=== PATIENT | male | born 1940 | race African-American/Black ===

== ENCOUNTER 2024-04-06 19:16 | Inpatient (IN) | payer OTHER ==
[2024-04-06] MEDS ORDERED: IOHEXOL 350 MG/ML 100 ML VIAL ONE (19:28)
[2024-04-06] MEDS ORDERED: SODIUM CHLORIDE 0.9% 100 ML ONE (19:28)
[2024-04-06 19:42] LABS: BASOPHILS % (AUTO) 0.3 % (0.0-2.0); EOSINOPHILS % (AUTO) 1.2 % (1.0-6.0); HEMATOCRIT 39.4 % (41-53); HEMOGLOBIN 12.6 g/dL (13.5-17.5); LYMPHOCYTES # (AUTO) 1.6 K/uL (1.0-4.8); MEAN CORPUSCULAR HEMOGLOBIN 29.2 pg (26.0-34.0); MEAN CORPUSCULAR HGB CONC 32.1 G/dL (31.0-37.0); MEAN CORPUSCULAR VOLUME 91 fL (80-100); MONOCYTES # (AUTO) 0.5 K/uL (0.1-1.0); MONOCYTES % (AUTO) 6.8 % (2.0-9.0); NEUTROPHILS # (AUTO) 4.7 K/uL (1.8-7.7); NEUTROPHILS % (AUTO) 68.7 % (40.0-70.0); PLATELET COUNT (AUTO) 209 K/uL (150-450); RED BLOOD CELL COUNT(AUTO) 4.33 MIL/uL (4.50-5.90); RED CELL DISTRIBUTION WIDTH 16.3 % (11.5-14.5); WHITE BLOOD COUNT (AUTO) 6.9 K/uL (4.5-11.0)
[2024-04-06] MEDS ORDERED: NiCARDipine HCL 25 MG in SODIUM CHLORIDE 0.9% 240 ML IV PRN (19:45)
[2024-04-06] MEDS ORDERED: LABETALOL HCL 5 MG/ML 20 ML VIAL IVP PRN (19:45)
[2024-04-06] MEDS: -PHARMACY NOTE- MISC SCH (19:45)
[2024-04-06 19:56] LABS: INR 1.2 (0.9-1.1); PROTHROMBIN TIME 12.3 SEC (9.4-11.6)
[2024-04-06 20:03] LABS: TROPONIN I-HIGH SENSITIVITY 1062 ng/L (<76)
[2024-04-06] MEDS: TENECTEPLASE PER STROKE PROTOCOL CLINICAL ONE (20:04)
[2024-04-06] MEDS: TENECTEPLASE 50 MG/10 ML KIT IVP ONE (20:08)
[2024-04-06 20:15] LABS: ANION GAP 13 mmol/L (8-16); CALCIUM, TOTAL 7.9 mg/dL (8.8-10.5); CARBON DIOXIDE 22 mmol/L (22-29); CHLORIDE 107 mmol/L (98-107); CREATININE 0.86 mg/dL (0.60-1.30); GLOMERULAR FILTR. RATE CALC > 60 mL/min (>60); GLUCOSE,RANDOM 76 mg/dL (70-110); POTASSIUM 3.2 mmol/L (3.5-5.1); SODIUM SERUM 142 mmol/L (136-145); UREA NITROGEN, BLOOD 11 mg/dL (7-18)
[2024-04-06 20:22] LABS: ALANINE AMINOTRANSFERASE 13 U/L (12-78); ALBUMIN 2.4 g/dL (3.4-5.0); ALKALINE PHOSPHATASE 45 U/L (46-116); ASPARTATE AMINOTRANSFERASE 18 U/L (15-37); BILIRUBIN,TOTAL 0.6 mg/dL (0.1-1.0); TOTAL PROTEIN, SERUM 6.6 g/dL (6.4-8.2)
[2024-04-06] MEDS ORDERED: ACETAMINOPHEN 325 MG TABLET PO PRN (21:00)
[2024-04-06] MEDS ORDERED: POTASSIUM CHLORIDE 20 MEQ ER TABLET PO PRN (21:00)
[2024-04-06] MEDS ORDERED: BISACODYL 10 MG RECTAL RECTAL SUPPOSITORY PR PRN (21:00)
[2024-04-06] MEDS ORDERED: ONDANSETRON HCL 4 MG/2 ML VIAL IVP PRN (21:00)
[2024-04-06] MEDS: SODIUM CHLORIDE 0.9% 1,000 ML IV ONE (21:20)
[2024-04-06] MEDS: POTASSIUM CHL 10 MEQ/WATER 50 ML IV PRN (21:21)
[2024-04-06 21:33] LABS: APPEARANCE,URINE CLEAR (CLEAR); BILIRUBIN,URINE NEGATIVE (NEGATIVE); COLOR,URINE LIGHT YELLOW (YELLOW); GLUCOSE, URINE (UA) NEGATIVE (NEGATIVE); KETONES,URINE NEGATIVE (NEGATIVE); LEUKOCYTE ESTERASE ,URINE NEGATIVE (NEGATIVE); NITRATE,URINE NEGATIVE (NEGATIVE); OCCULT BLOOD,URINE NEGATIVE (NEGATIVE); PH,URINE 6.5 (5.0-8.0); PH,URINE DRUG SCREEN 6.5 (5.0-8.0); PROTEIN,URINE 30-70 mg/dL (NEGATIVE); UROBILINOGEN,URINE <=1.0 mg/dL (<=1.0)
[2024-04-06 21:40] LABS: ALCOHOL, URINE DRUG SCREEN NEGATIVE (NEGATIVE); AMPHET/METH SCREEN,URINE NEGATIVE (NEGATIVE); BARBITURATE SCREEN, URINE NEGATIVE (NEGATIVE); BENZODIAZEPINES SCREEN,URINE NEGATIVE (NEGATIVE); CANNABINOID SCREEN,URINE NEGATIVE (NEGATIVE); COCAINE SCREEN,URINE NEGATIVE (NEGATIVE); METHADONE SCREEN, URINE NEGATIVE (NEGATIVE); OPIATE SCREEN,URINE NEGATIVE (NEGATIVE); PHENCYCLIDINE SCREEN,URINE NEGATIVE (NEGATIVE); SPECIFIC GRAVITIY, URINE > 1.050 (1.003-1.030)
[2024-04-06 21:56] LABS: BACTERIA,URINE None Seen /HPF (None Seen); RBC,URINE None Seen /HPF (0-2); WBC,URINE 0-2 /HPF (0-5)
[2024-04-06] MEDS: CHLORHEXIDINE GLUCONATE 2% TOWELETTE [2'S/6'S] TP SCH (22:00)
[2024-04-06] MEDS: LORazepam 2 MG/ML VIAL IVP ONE (22:09)
[2024-04-07 02:12] LABS: TROPONIN I-HIGH SENSITIVITY 1858 ng/L (<76)
[2024-04-07] MEDS: LORazepam 2 MG/ML VIAL IVP ONE (03:48)
[2024-04-07 07:50] LABS: TROPONIN I-HIGH SENSITIVITY 1412 ng/L (<76)
[2024-04-07] MEDS: PANTOPRAZOLE SODIUM 40 MG/VIAL IVP SCH (08:29)
[2024-04-07] MEDS: LORazepam 2 MG/ML VIAL IVP PRN (09:52)
[2024-04-07] MEDS: HydrALAZINE HCL 20 MG/ML VIAL IVP PRN (11:09)
[2024-04-07 22:17] VITALS: BP 146/95; PULSE 92; RESP 18; TEMP 97.5; O2SAT 99
[2024-04-08 02:57] VITALS: BP 155/98; PULSE 105; RESP 20; TEMP 97.5; O2SAT 98
[2024-04-08 07:04] LABS: BASOPHILS % (AUTO) 0.2 % (0.0-2.0); EOSINOPHILS % (AUTO) 0.4 % (1.0-6.0); HEMATOCRIT 41.9 % (41-53); HEMOGLOBIN 13.7 g/dL (13.5-17.5); LYMPHOCYTES # (AUTO) 1.3 K/uL (1.0-4.8); LYMPHOCYTES % (AUTO) 14.7 % (22.0-44.0); MEAN CORPUSCULAR HEMOGLOBIN 29.8 pg (26.0-34.0); MEAN CORPUSCULAR HGB CONC 32.7 G/dL (31.0-37.0); MEAN CORPUSCULAR VOLUME 91 fL (80-100); MONOCYTES # (AUTO) 0.6 K/uL (0.1-1.0); MONOCYTES % (AUTO) 6.5 % (2.0-9.0); NEUTROPHILS # (AUTO) 6.7 K/uL (1.8-7.7); NEUTROPHILS % (AUTO) 78.2 % (40.0-70.0); PLATELET COUNT (AUTO) 252 K/uL (150-450); RED BLOOD CELL COUNT(AUTO) 4.59 MIL/uL (4.50-5.90); RED CELL DISTRIBUTION WIDTH 16.3 % (11.5-14.5); WHITE BLOOD COUNT (AUTO) 8.6 K/uL (4.5-11.0)
[2024-04-08 07:33] LABS: TROPONIN I-HIGH SENSITIVITY 1178 ng/L (<76)
[2024-04-08 07:39] LABS: HEMOGLOBIN A1C 5.7 % (3.8-5.6)
[2024-04-08 07:48] LABS: CALCIUM, TOTAL 8.8 mg/dL (8.8-10.5); CARBON DIOXIDE 18 mmol/L (22-29); CHOL/HDL RATIO 3.9 (4.2-7.3); CHOLESTEROL 184 mg/dL (131-200); CREATININE 0.82 mg/dL (0.60-1.30); GLOMERULAR FILTR. RATE CALC > 60 mL/min (>60); GLUCOSE,RANDOM 93 mg/dL (70-110); HDL CHOLESTEROL 47 mg/dL (40-60); LDL CHOL (CALC.) 124 mg/dL (0-130); THYROID STIMULATING HORMONE 5.93 uIU/mL (0.36-3.74); TRIGLYCERIDES 67 mg/dL (15-150); UREA NITROGEN, BLOOD 4 mg/dL (7-18)
[2024-04-08 07:55] LABS: B-TYPE NATRIURETIC PEPTIDE 1640 pg/mL (0-100)
[2024-04-08 08:00] VITALS: BP 153/85; PULSE 94; RESP 18; TEMP 97.3; O2SAT 100
[2024-04-08 08:41] LABS: ANION GAP 18 mmol/L (8-16); CHLORIDE 107 mmol/L (98-107); POTASSIUM 3.3 mmol/L (3.5-5.1); SODIUM SERUM 143 mmol/L (136-145)
[2024-04-08] MEDS: ASPIRIN 81 MG CHEWABLE TABLET PO SCH (09:00)
[2024-04-08 12:00] VITALS: BP 147/79; PULSE 77; RESP 18; TEMP 98.1; O2SAT 98
[2024-04-08] MEDS ORDERED: PERFLUTREN PROTEIN-A MICROSPHERES 0.22 MG/ML 3 ML VIAL IVP ONE (15:15)
[2024-04-08 15:18] VITALS: BP 136/68; PULSE 85; RESP 19; TEMP 97.8; O2SAT 99
[2024-04-08 17:18] VITALS: BP 146/92; PULSE 86; RESP 18; TEMP 97.8; O2SAT 99
[2024-04-08] MEDS ORDERED: CARVEDILOL 3.125 MG TABLET PO SCH (21:00)
[2024-04-09] MEDS ORDERED: LOSARTAN POTASSIUM 25 MG TABLET PO SCH (09:00)
== END 2024-04-08 17:35 | disposition short-term general hospital (02) | DRG 61 ==
LOC: EMS 19:16 → EDBD 19:16 → EDH 20:56 → 5S 04-07 22:14
PROVIDERS: ADMIT Internal Medicine; ATTEND Internal Medicine
DX: I63.12 Cerebral infarction due to embolism of basilar artery (principal); I21.4 Non-ST elevation (NSTEMI) myocardial infarction; I50.23 Acute on chronic systolic (congestive) heart failure; G81.91 Hemiplegia, unspecified affecting right dominant side; E87.6 Hypokalemia; I49.5 Sick sinus syndrome; I11.0 Hypertensive heart disease with heart failure; F02.80 Dementia in other diseases classified elsewhere, unspecified severity, without behavioral disturbance, psychotic disturbance, mood disturbance, and anxiety; G30.9 Alzheimer's disease, unspecified; I08.1 Rheumatic disorders of both mitral and tricuspid valves; Z95.0 Presence of cardiac pacemaker
CPT/HCPCS: 70450; 70496; 70498; 71045; 80048; 80053; 80061; 80307; 81001; 82948; 83036; 83880; 84132; 84443; 84484; 85025; 85610; 85730; 92526; 92610; 93005; 93306; 97116; 97163; 97167; 97530; 97535; 99291; C8924; C9113; G0378; J0360; J2060; J3101; J3480; J3490; J7030; J7050; 36415-L1; 36415-TC